=== PATIENT | female | born 2005 | race Caucasian/White ===

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

== ENCOUNTER 2024-04-02 09:57 | Emergency (ER) | payer OTHER, SELFPAY ==
[2024-04-02 10:05] VITALS: BP 146/67; PULSE 74; RESP 17; TEMP 36.8; O2SAT 100
--- NOTE | 2024-04-02 10:31 | ED.GENADULT ---
HPI - General Adult General Chief complaint: Urogenital-Female Stated complaint: Poss UTI Source: patient Mode of arrival: ambulatory Limitations: no limitations History of Present Illness HPI narrative: Pt presents for evaluation of sensation of incomplete emptying following urination. Symptom onset yesterday. She states she has had similar symptoms in the past with a UTI. She denies any dysuria, urinary frequency, hematuria, abdominal pain, low back pain, fever, chills, nausea, vomiting, vaginal bleeding or discharge. She is currently on oral contraception. LMP 03/20/24. She tried taking Azo for her symptoms. She states her symptoms resolved when providing us with urine specimen here. Related Data Allergies Allergy/AdvReac Type Severity Reaction Status Date / Time No Known Allergies Allergy Verified 04/02/24 10:11 Review of Systems Review of Systems: CONSTITUTIONAL: Denies fever, chills, or sweats. EYES: Denies visual changes, redness, or discharge. ENT: Denies rhinorrhea, congestion, sore throat, or otalgia. CARDIOVASCULAR: Denies chest pain, palpitations, or edema. RESPIRATORY: Denies cough or dyspnea. GASTROINTESTINAL: Denies abdominal pain, nausea, vomiting, or diarrhea. GENITOURINARY: Reports sensation of incomplete emptying with urination. Denies dysuria, urinary frequency, hematuria, vaginal bleeding or discharge. SKIN: Denies rash or itching. MUSCULOSKELETAL: Denies back pain, joint pain, or myalgia. NEUROLOGIC: Denies headache, numbness, dizziness, or weakness. PSYCHIATRIC: Denies anxiety or depression. [facility] Past Medical History Medical History No pertinent past medical history Surgical History Surgical History No pertinent past surgical history Family History Family History Mother Family history non-contributory Social History Social History Smoking status: Never smoker Gender identity (if verbalized by the patient): Female Sexual Orientation (if Verbalized by the Patient): Straight or Heterosexual Spiritual care concerns: No Exam Narrative: GENERAL: Well-appearing, well-nourished, and in no acute distress. HEAD: Normocephalic, atraumatic. EYES: PERRLA and EOMI. ENT: Nares clear, no rhinorrhea or epistaxis. Mucous membranes moist. Oropharynx without tonsillar hypertrophy exudate or other lesions. Bilateral TMs pearly pena nonbulging NECK: Supple. No adenopathy or masses. No carotid bruits or JVD CHEST: Clear to auscultation. No respiratory distress. No wheezes rales or rhonchi HEART: Regular rate and rhythm. No murmur heard. Normal peripheral pulses. ABDOMEN: Soft, nontender, nondistended, normal active bowel sounds. BACK: No CVA tenderness EXTREMITIES: Normal range of motion. No edema. SKIN: Warm, dry, no rash. NEURO: No focal deficits. Alert and oriented x3. PSYCH: Normal mood and affect. Course Course Emergency Course: This is a 18-year-old female who presented for evaluation of sensation of incomplete emptying following urination. She has no signs of infection in her urine today. She has no vaginal discharge. Her is negative. BS is 119. I advised that she has no signs of infection today and abx are not clinically indicated. I recommended she follow up with her primary care provider, increase hydration and start cranberry pills. I highlighted the fact that she was asymptomatic when she provided us with urine sample today. She continued to state that her symptoms are consistent with those experienced in the past with UTI and indicated her lack of satisfaction with my response. I did tell her that other causes of incomplete emptying are possibilities however she was not pleased with my response. I offered to send urine
[2024-04-02 10:38] LABS: Glucose Point of Care 119 mg/dl (65-105)
[2024-04-02 10:42] LABS: BEDSIDEPREGUCG Negative (Negative); EDUAAPPEAR Cloudy; EDUABILI Negative (Negative); EDUABLOOD Negative (Negative); EDUACOLOR1 Yellow; EDUAGLUCOSE Negative (Negative); EDUAKETONE Negative (Negative); EDUALEUKO Negative (Negative); EDUANITRATE Negative (Negative); EDUAPH 8.5; EDUAPROTEIN Trace (Negative); EDUAUROBILI 0.2
== END 2024-04-02 11:04 | disposition home or self-care (01) ==
PROVIDERS: Emergency Provider Nurse Practitioner; PCP Pediatrics Adolescent Medicine
DX: R33.9 Retention of urine, unspecified (principal)
CPT/HCPCS: 81003; 81025; 82948; 87086; 99213; G0463

== ENCOUNTER 2024-08-12 11:14 | Emergency (ER) | payer OTHER, SELFPAY ==
[2024-08-12 11:23] VITALS: BP 128/71; PULSE 83; RESP 18; TEMP 37.3; O2SAT 99
--- NOTE | 2024-08-12 11:43 | ED.FEMALEGU ---
HPI - Female Genitourinary General Chief complaint: Urogenital-Female Stated complaint: Urinary Problem Time Seen by Provider: 08/12/24 11:44 Source: patient and RN notes reviewed Mode of arrival: ambulatory Limitations: no limitations History of Present Illness HPI Narrative: 19-year-old female presents concern for dysuria, frequency, decreased urination that started yesterday. She reports she took azo this morning. She denies fever, aches, chills, sweats, nausea, vomiting, fever. MD elicited complaint: UTI Related Data Home Medications ?Medication ?Instructions ?Recorded ?Confirmed ?Last Taken ?Type norgestimate 0.25 mg-ethinyl tablet 08/12/24 Unknown History estradiol 35 mcg tablet (Estarylla) omeprazole 20 mg capsule,delayed mg 08/12/24 Unknown History release Allergies Allergy/AdvReac Type Severity Reaction Status Date / Time No Known Allergies Allergy Verified 08/12/24 11:23 Review of Systems Review of Systems: CONSTITUTIONAL: Denies malaise, chills, sweats, or fever. CARDIOVASCULAR: Denies chest pain, palpitations, or edema. RESPIRATORY: Denies cough or dyspnea. GASTROINTESTINAL: Denies abdominal pain, nausea, vomiting, diarrhea GENITOURINARY: Reports dysuria, frequency. Urgency, suprapubic pressure. Denies flank pain or hematuria. SKIN: Denies rash or itching. MUSCULOSKELETAL: Denies back pain or myalgia. All systems reviewed & are unremarkable except as noted in HPI and below PMFSH Past Medical History Medical History No pertinent past medical history Surgical History Surgical History No pertinent past surgical history Family History Family History Mother Family history non-contributory Social History Social History Smoking status: Never smoker Gender identity (if verbalized by the patient): Female Sexual Orientation (if Verbalized by the Patient): Straight or Heterosexual Spiritual care concerns: No Comments At time of signature, agree with nursing past medical, surgical, social and family history. There is no relevant family history pertinent to the presenting complaint Exam Narrative: GENERAL: Well-appearing, well-nourished, and in no acute distress. HEAD: Normocephalic. EYES: PERRLA, conjunctivae clear. NECK: Supple. No lymphadenopathy CHEST: Clear to auscultation. No respiratory distress. HEART: Regular rate and rhythm. ABDOMEN: Soft, nontender upon palpation, nondistended, normal active bowel sounds, no palpable or pulsatile masses, no guarding. No CVA tenderness SKIN: Warm, dry, no rash. NEURO: Alert and oriented x3. PSYCH: Normal mood and affect Course Course Emergency Course: Patient is aware of diagnosis, understands and agrees to treatment plan. Anticipatory guidance given. Patient agrees to follow-up as directed and is aware of reasons to seek care at the emergency department. Portions of this record may have been created with voice recognition software Level of Care: Express Care Visit Vital Signs Vital signs: Vital Signs Temperature 99.1 F 08/12/24 11:23 Pulse Rate 83 08/12/24 11:23 Respiratory Rate 18 08/12/24 11:23 Blood Pressure 128/71 08/12/24 11:23 Pulse Oximetry 99 08/12/24 11:23 Oxygen Delivery Room Air 08/12/24 11:23 Temperature 99.1 F 08/12/24 11:23 Pulse Rate 83 08/12/24 11:23 Respiratory Rate 18 08/12/24 11:23 Blood Pressure 128/71 08/12/24 11:23 Pulse Oximetry 99 08/12/24 11:23 Oxygen Delivery Room Air 08/12/24 11:23 Reviewed. MDM - Female Genitourinary MDM Narrative Medical decision making narrative: Exam findings and UA show no acute concerns or changes; patient is non-toxic appearing and is in no distress. Patient is appropriate for outpatient treatment and follow-up. Differential Diagnosis Differential diagnosis: Likely urinary tract infection and cystitis Critical Care Time Critical Care Time Critical Care Time: No Discharge Plan Discharge Clinical Impression: Symptoms of urinary tract infection Patient Disposition: Home, Self-Care Condition: Stable Instructions: Antibiotic Form, Urinary Tract Infection in Women (ED) Additional Instructions: We will send a urine culture to the lab; if the culture identifies an organism that the prescribed antibiotic will not treat, you will receive a phone call from an urgent care staff member and an appropriate antibiotic will be prescribed. -Your symptoms should begin to improve within a day of starting antibiotics. But you should finish all the antibiotic pills you get. Otherwise your infection might come back. -Also recommend: increase water intake. Tylenol/ibuprofen as needed for pain or fever -Follow-up with your primary care provider for urine recheck or seek ER visit if condition worsens with high fever, nausea, vomiting and severe back pain. Patient Language: Mongolian Prescriptions: New sulfamethoxazole-trimethoprim 800-160 mg tablet 1 tablet PO Q12H 7 Days Qty: 14 0RF No Action norgestimate-ethinyl estradiol [Estarylla] 0.25-35 mg-mcg tablet omeprazole 20 mg capsule,delayed release(DR/EC) Follow-up/Referrals: Seb,Alma Gutierrez MD [Primary Care Provider] - Stand Alone Forms: Work/School Release IP Time of Disposition: 11:48
== END 2024-08-12 11:50 | disposition home or self-care (01) ==
PROVIDERS: Emergency Provider Nurse Practitioner; PCP Pediatrics Adolescent Medicine
DX: R35.0 Frequency of micturition (principal); R30.0 Dysuria; R34 Anuria and oliguria
CPT/HCPCS: 87086; 87186; 99213; G0463

== ENCOUNTER 2025-02-25 16:40 | Emergency (ER) | payer BC, OTHER, SELFPAY ==
--- OUTSIDE RECORDS SUMMARY | 2025-02-25 16:44 | XMS_ITS | Clinical Summary ---
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 Name Role Phone Malia Pemberton MD Primary Care Provider [phone] Allergies No known active allergies Medications albuterol HFA (PROVENTIL HFA,VENTOLIN HFA,PROAIR HFA) 90 mcg/actuation inhaler Inhale 2 puffs 07/03/2024 Active Estarylla 0.25-35 mg-mcg per tablet Take 1 tablet by mouth daily 05/14/2024 Active omeprazole (PriLOSEC) 20 mg capsule Take by mouth daily 07/19/2024 Active HYDROcodone-acet aminophen (NORCO) 5-325 mg per tabletIndication s:Pain Take 1 tablet by mouth every 4 (four) hours as needed for pain 30 tablet 08/24/2024 Active Active Problems Problem Noted Date Diagnosed Date Metatarsalgia of right foot 08/01/2024 Surgical History Surgery Date Site/Laterality Comments TYMPANOSTOMY TUBE PLACEMENT ESOPHAGOGASTRODUODENOSCOPY Medical History Medical History Date Comments Asthma GERD (gastroesophageal reflux disease) Family History Medical History Relation Name Comments No Known Problems Father No Known Problems Mother Relation Name Status Comments Father Alive Mother Alive Social History Tobacco Use Types Packs/Day Years Used Date Smoking Tobacco: Never Smokeless Tobacco: Never AUDIT-C Answer Date Recorded Q1: How often do you have a drink containing alcohol? Never 08/24/2024 Q2: How many drinks containi ng alcohol do you have on a typical day when you are drinking? Patient does not drink Q3: How often do you have si x or more drinks on one occasion? Never 08/24/2024 Personal Safety Answer Date Recorded Have you ever been in or are you currently in a harmful physical or emotional relationship or is someone making you feel afraid or unsafe? 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 Gender Identity Not on file Sexual Orientation Not on file Obstetrics History Para Term AB IAB SAB Ectopic Multiple Livin g Live Births 0 0 0 0 0 0 0 0 0 0 0 Last Filed Vital Signs Vital Sign Reading Time Taken Comments Blood Pressure 116/63 08/24/2024 3:10 PM CDT Pulse 73 08/24/2024 3:10 PM CDT Temperature 37 C (98.6 F) 08/24/2024 3:10 PM CDT Respiratory Rate 15 08/24/2024 3:10 PM CDT Oxygen Saturation 100% 08/24/2024 3:10 PM CDT Inhaled Oxygen Concentration - - Weight 75.2 kg (165 lb 12.6 oz) 025 11:57 AM CDT Height 163.8 cm (5' 4.5) 08/24/2024 11 :57 AM CDT Body Mass Index 28.02 08/24/2024 11:57 AM CDT Plan of Treatment Health Maintenance Due Date Last Done Comments Depression Screening 2004 Hepatitis C Screening 2004 Meningococcal B Vaccine (1 of 2 - Standard) 2020 Regular Well Visit/Exam 18-64 2022 Influenza Vaccine (#1) 2025 6, 03/30/2015, 03/17/2014, Additional history exists DTaP/Tdap/Td Vaccine (7 - Td or Tdap) 11/21/2025 11/22/2015, 03/01/2009, 03/18/2006, Additional history exists Hepatitis B Screening Completed 2004 , 2004, 2004, Additional history exists Pneumococcal vaccine <65 Completed 006, 2004, 2004, Additional history exists Varicella Vaccines Completed 10/17/2009, 03/18/2006 Meningococcal Vaccine Aged Out 11/22/2015 No grayson sana eligible based on patient's age to complete this topic HPV Vaccines Completed 02/17/2018, 01/18/2017 Medical Devices Implanted Type Area Dryerman/Woman Device Identifier Shelf Expiration Date Model / Serial / Lot [employer] Fixos 2.5mm 3.4mm 12mm Cannulated Compression Self Drill Self Tap Sv12 - Sn/A - [id number] Implanted:Qty: 1 on 08/24/2024 by Morenita Mcknight DPM at [facility] Screw Right: Second Toe [employer] SV12 / N/A / [facility] H[facility]/PPO Address: [address] [address] [place] [address] IDPA Care Teams Rock Drill Operator Relationship Specialty Start Date End Date Malia Pemberton MD [address] [place] [address] [address] [place] [address] PCP - General Pediatrics 07/20/24
[2025-02-25 16:51] VITALS: BP 133/77; PULSE 69; RESP 16; TEMP 36.8; O2SAT 100
[2025-02-25 17:14] LABS: EDCOVIDSCREEN Negative (Negative); EDINFLUASCREEN Negative (Negative); EDINFLUBSCREEN Negative (Negative); EDSTREPNEGPOS1 Negative (Negative)
--- NOTE | 2025-02-25 17:26 | ED_ITS ---
HPI - URI/Sore Throat General Chief Complaint: Upper Respiratory Infection Stated Complaint: nasal/chest samir, ears hurts Time Seen by Provider: 02/25/25 17:09 Source: patient and RN notes reviewed Mode of arrival: ambulatory Limitations: no limitations History of Present Illness HPI Narrative: Patient presents today complaining of sore throat, cough, congestion, chills, rhinorrhea, bilateral ear pressure, sneezing since yesterday. Denies fever, shortness of breath, difficulty swallowing. Denies any known sick contacts. She has tried cough drops, and Tylenol day and night without improvement. Currently rates her pain 8/10. History of asthma. She has not needed to use her albuterol inhaler more frequently since onset of symptoms. Related Data Home Medications ?Medication ?Instructions ?Recorded ?Confirmed ?Last Taken ?Type norethindrone 0.4 mg-ethinyl tablet 02/25/25 Unknown History estradiol 35 mcg tablet (Balziva (28)) Allergies Allergy/AdvReac Type Severity Reaction Status Date / Time No Known Allergies Allergy Verified 02/25/25 17:02 [facility] Past Medical History Medical History (Updated 02/25/25 @ 17:29 by Johana Hadley, [facility], ) Asthma Surgical History Surgical History No pertinent past surgical history Family History Family History Mother Family history non-contributory Social History Social History Smoking status: Never smoker Gender identity (if verbalized by the patient): Female Sexual Orientation (if Verbalized by the Patient): Straight or Heterosexual Spiritual care concerns: No Comments At time of signature, I have reviewed and agree with nursing past medical, surgical, social and family history unless otherwise noted. Please see nursing chart for further information. There is no relevant family history pertinent to the presenting complaint Exam Narrative: GENERAL: Mildly ill-appearing, well-nourished, and in no acute distress. HEAD: Normocephalic, atraumatic. EYES: EOMI. No redness or drainage. Conjunctivae normal. ENT: Mucous membranes pink and moist. Nares congested with rhinorrhea. TMs normal bilaterally. Myringotomy tube in the right TM. Throat normal. Uvula midline. NECK: Normal AROM. Supple. No lymphadenopathy. CHEST: No respiratory distress. Clear to auscultation. HEART: Regular rate and rhythm. No murmur appreciated. EXTREMITIES: Normal range of motion. No edema. SKIN: Warm, dry, no rash. Capillary refill normal. Normal skin turgor. NEURO: No focal deficits. Alert and oriented x3. Gait steady. PSYCH: Normal affect. No signs of depression or anxiety. Course Course Level of Care: Express Care Visit Vital Signs Vital signs: Vital Signs Temperature 98.2 F 02/25/25 16:51 Pulse Rate 69 02/25/25 16:51 Respiratory Rate 16 02/25/25 16:51 Blood Pressure 133/77 02/25/25 16:51 Pulse Oximetry 100 02/25/25 16:51 Oxygen Delivery Room Air 02/25/25 16:51 Temperature 98.2 F 02/25/25 16:51 Pulse Rate 69 02/25/25 16:51 Respiratory Rate 16 02/25/25 16:51 Blood Pressure 133/77 02/25/25 16:51 Pulse Oximetry 100 02/25/25 16:51 Oxygen Delivery Room Air 02/25/25 16:51 Reviewed MDM - URI/Sore Throat MDM Narrative Medical decision making narrative: 19-year-old female patient presents today with sore throat, cough, congestion, rhinorrhea, bilateral ear pressure, chills, sneezing since yesterday. Denies fever or known sick contacts. Upon exam, patient is mildly ill appearing with nasal congestion and rhinorrhea. She also has a retained myringotomy tube at the right TM. COVID, influenza, and rapid strep negative. Strep culture pending. Symptoms likely viral in etiology. Discussed [id number] medication use and duration of illness. No prescription medications indicated at this time. Anticipatory guidance given. Recommend patient discuss with PCP or ENT regarding retained ear tube. Vital signs stable. Differential Diagnosis Differential diagnosis: Likely upper respiratory infection, otitis media, viral infection, influenza, pharyngitis and other (COVID-19, strep throat) Lab Data Attestation: I reviewed the patient's lab results. Labs: Lab Results 09/14/25 Range/Units 17:12 POC Influenza A Ag Negative (Negative) POC Influenza B Ag Negative (Negative) POC SARS CoV-2 Ag Negative (Negative) POC Grp A Strep Screen Negative (Negative) Critical Care Time Critical Care Time Critical Care Time: No Discharge Plan Discharge Clinical Impression: Upper respiratory infection Qualifiers: URI type: unspecified URI Qualified Code(s): J06.9 - Acute upper respiratory infection, unspecified Patient Disposition: Home Condition: Stable Instructions: Upper Respiratory Infection (DC) Additional Instructions: Your COVID-19, influenza, and rapid strep swab was negative today at [facility]. You will be notified in a few days if the culture comes back positive for strep, and appropriate antibiotics will be called in for you at that time. Your symptoms are likely due to a viral illness, which is not treated with antibiotics. Viral symptoms can be present for up to 7-10 days. Take Tylenol or ibuprofen for fever or pain. You may consider Sudafed and/or Flonase for your nasal congestion and sinus pressure. Rest and stay hydrated. Follow up with your PCP in 7 days if symptoms are not improving. Go to the ER immediately if [] any difficulty breathing or swallowing. Patient Language: Slovenian Prescriptions: No Action Denisse (28) 0.4-35 mg-mcg tablet Follow-up/Referrals: PHYSICIAN,BACKBREAKER [Primary Care Provider, Internal Medicine] Time of Disposition: 17:29
== END 2025-02-25 17:34 | disposition home or self-care (01) ==
PROVIDERS: Emergency Provider Nurse Practitioner
DX: J06.9 Acute upper respiratory infection, unspecified (principal); Z20.822 Contact with and (suspected) exposure to COVID-19; J45.909 Unspecified asthma, uncomplicated
CPT/HCPCS: 87081; 87426; 87804; 87880; 99213; G0463